=== PATIENT | male | born 1980 | race Caucasian/White ===

== ENCOUNTER 2020-09-06 10:58 | Emergency (ER) | payer OTHER, SELFPAY ==
[2020-09-06 11:56] VITALS: BP 106/70; PULSE 94; RESP 18; TEMP 36.9; O2SAT 97; BMI 23.4
--- NOTE | 2020-09-06 12:01 | DI.RAD.S_ITS ---
PROCEDURE: XR RIBS RT MIN 3V W CXR 1V INDICATIONS: trauma TECHNIQUE: 2 views of the right ribs were acquired, along with a single view chest. COMPARISON: None. FINDINGS: Surgical changes and devices: None. Bones and chest wall: No fractures or dislocations. No suspicious bony lesions. Overlying soft tissues appear unremarkable. Lungs and pleura: No pleural effusions or pneumothorax. Lungs appear clear. Mediastinum: Mediastinal contours appear normal. Heart size is normal. IMPRESSION: No fracture identified. No acute disease. Dictated by: Dae Hinojosa M.D. on 09/06/2020 at 12:30 Approved by: Dae Hinojosa M.D. on 09/06/2020 at 12:32
[2020-09-06] MEDS: BACITRACIN OINT 0.9 GM PCKT 5 APPLIC TOP (12:25)
[2020-09-06] MEDS: IBUPROFEN 400 MG TABLET PO (13:12)
[2020-09-06] MEDS: ACETAMINOPHEN 325 MG TABLET 650 MG PO (13:12)
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
== END 2020-09-06 15:34 | disposition home or self-care (01) ==
PROVIDERS: Emergency Provider Physician Assistant
DX: S40.811A Abrasion of right upper arm, initial encounter (principal); S20.311A Abrasion of right front wall of thorax, initial encounter; V00.131A Fall from skateboard, initial encounter
CPT/HCPCS: 71101; 99283